=== PATIENT | female | born 1995 | race African-American/Black ===

== ENCOUNTER 2025-02-13 06:19 | Outpatient (REF) | payer OTHER, SELFPAY ==
--- NOTE | ~2025-02-13 | US_ITS ---
EXAMINATION: US , LIMITED CLINICAL INFORMATION: Uncertain dates due to irregular periods. Size and dating examination. COMPARISON: None available. TECHNIQUE: Grayscale, M-mode imaging was performed of the maternal uterus. FINDINGS: Is should be noted this examination was performed for size and dating only, and should not be considered a formal survey. LMP = 10/15/2024. There is a solitary intrauterine gestation, with gestational sac, in cephalic presentation. heart rate = 147 bpm. The placenta is anterior. Biparietal diameter = 2.64 cm, correlating to 14 weeks and 5 days. Head circumference = 10.2 cm, correlating to 14 weeks and 6 days. Abdominal circumference = 8.0 cm, correlating with 14 weeks and 3 days. Femur length = 1.54 cm, correlating to 14 weeks and 4 days. Humeral length = 1.54B, correlating with 14 weeks and 3 days. Gestational age by ultrasound = 14 weeks and 5 days, with estimated delivery date of 08/09/2025. Maternal ovaries are normal in size and sonographic appearance without evidence of mass. No pelvic ascites. US/US OB limited IMPRESSION: 1. Solitary gestation in utero, cephalic presentation, heart rate of 147 bpm, with estimated gestational age by ultrasound of 14 weeks and 5 days, and estimated delivery date of 08/09/2025. 2. Anterior placenta. Electronically signed by: Morgan Velazco MD 02/13/2025 04:07 PM EDT
--- OUTSIDE RECORDS SUMMARY | 2025-02-13 06:22 | XMS_ITS | Clinical Summary ---
Author Organization [facility] Address [address] [place] [address] [address] [place] [address] Phone Care Team Providers Care Corporate Accounting Manager Name Role Phone Pcp, Unknown Primary Care Provider Unavailabl e Encounters Date Type Department Care Team Description 01/30/2025 Telephone [facility] [address] [place] [address] [place] [id number] Delicia Severino LPN Provider Call Back from Last 3 Months Social History Tobacco Use Types Packs/Day Years Used Date Smoking Tobacco: Never Assessed Education Answer Date Recorded Are you interested in more education? Not on kenneth e 01/24/2025 Are you concerned about learning? Not on file 01/24/2025 No 01/24/2025 No 01/24/2025 Digital Access Answer Date Recorded No 01/24/2025 No 01/24/2025 Reliable internet access at home? Not on file 01/24/2025 Device with a working camera? Not on file Comments Unknown Sex and Gender Information Value Date Recorded Sex Assigned at Not on file Legal Sex Female 1:15 PM EDT Gender Identity Not on file Sexual Orientation Not on file Plan of Treatment Upcoming Encounters Date Type Department Care Team (Late st Contact Info) Description 02/19/2025 1:20 PM EDT Office Visit [facility] [address] [place] [address] [place] [address] Selam Barajas MD [address], [address] [place] [address] [email or web address] Health Maintenance Due Date Last Done Comments Adult Td,Tdap Booster 1997 DEPRESSION SCREENING 2009 SMOKING Hx and SMOKELESS TOB ACCO SCREENING 2010 HEPATITIS C SCREENING 2015 HIV ONE-TIME SCREENING (18-6 5 YEARS) 2015 PAP SMEAR 2018 INFLUENZA VACCINE (#1) 2024 COVID-19 VACCINE (2023-2 5 season) 2025 HEPATITIS A VACCINES Aged Out No long er eligible based on patient's age to complete this topic HIB VACCINES Aged Out No longer eligi ble based on patient's age to complete this topic MENINGOCOCCAL VACCINES (ACWY) Aged Out No longer eligible based on patient's age to complete this topic MENINGOCOCCAL VACCINES (B) Aged Out N o longer eligible based on patient's age to complete this topic PNEUMOCOCCAL VACCINES (0-49 years) Aged Out No longer eligible based on patient's age to complete this topic Medical Devices Not on file Insurance [facility] [place] [place] [place] Care Teams Corporate Accounting Manager Relationship Specialty Start Date End Date Pcp, Unknown PCP - General 01/08/25 Additional Source Comments The information contained in this document represents components of the legal health record. It is not the complete legal health record.[facility]
== END 2025-02-13 06:20 | disposition home or self-care (01) ==
LOC: HO.UMASIMG 06:19
PROVIDERS: Visit Provider Emergency Medicine
DX: O26.892 Other specified pregnancy related conditions, second trimester (principal); Q21.9 Congenital malformation of cardiac septum, unspecified; Z3A.14 14 weeks gestation of pregnancy
CPT/HCPCS: 76815

== ENCOUNTER → 2025-02-13 14:34 | Outpatient (BNV) | payer OTHER, SELFPAY | PROVIDERS: Visit Provider Radiology Diagnostic Radiology | DX: Z34.91 Encounter for supervision of normal pregnancy, unspecified, first trimester (principal); Z3A.14 14 weeks gestation of pregnancy | CPT/HCPCS: 76815 ==